=== PATIENT | female | born 1975 | race Caucasian/White ===

== ENCOUNTER 2018-01-25 03:42 | Emergency (ER) | payer MEDICARE ==
[~2018-01-25 03:42] MED LIST: ALBU90OI6 INH; AMOCLA875 PO; AMOX500 PO; Amox Tr-K Clv1 EAC2 PO; BENZ1 PO; BUSP10; BUSP5 PO; CEPH500 PO; CIPR100 PO; CIPR500 PO; CLON1; CLON2; Cleocin HCl300 MG PO; DOXY100 PO; DULOXETINE; FLUC150A PO; FLUO10 PO; FLUOXETINE; HYDACE10B PO; HYDACE5 PO; HYDPAM25; IBUP800 PO; LEVLIO2; LEVSOD100 PO; LEVSOD50 PO; LEXAPRO; LORA1 PO; LORA2 PO; MEDICAL MARIJUANA; METF500; NAPR500 PO; NITR100CA PO; OLAN10 PO; OLAN7.5 PO; ONDA4 PO; ONDA4ODT MM; OXYACE5T PO; PENVK500 PO; POTCHL20ER PO; QUET100; QUET100 PO; QUET200; QUET25; QUET25 PO; RXCEPH500 PO; RXHYDACE PO; RXNAPNA550 PO; SOME ANTIBIODIC; Synthroid100 MCG PO; THYROID; TOPI100; TRAM50 PO; TRAZ50
== END 2018-01-25 04:06 | disposition left against medical advice (07) ==
LOC: ER 03:42
DX: Z53.21 Procedure and treatment not carried out due to patient leaving prior to being seen by health care provider (principal)

== ENCOUNTER → 2019-05-08 | Outpatient (CLI) | payer MEDICARE, OTHER ==
[~2019-05-08] MED LIST changes: +AMOCLA500 PO; +BUPROPION XL150 MG PO; +Buspirone HCl15 MG PO; +Ciprodex Otic7.5 ML LEFTEAR; +DOXY100T53; +LEVSOD125 PO; +Vistaril25 MG PO
[2019-05-08 19:57] LABS: Alanine Aminotransfer (ALT/SGP 27 U/L (12-78); Albumin, Blood 3.7 g/dL (3.4-5.0); Albumin/Globulin Ratio 0.9 (0.8-1.8); Alk Phos 78 U/L (50-136); Anion Gap 4 mmol/L (6-16); Aspartate Aminotrans (AST/SGOT 16 U/L (12-37); Bilirubin, Total 0.5 mg/dL (0.1-1.0); Blood Urea Nitrogen 9 mg/dL (8-24); Bun/Creatinine Ratio 11.4 (12.0-20.0); CO2, Blood 24 mmol/L (21-32); Chloride, Blood 106 mmol/L (98-108); Cholesterol 176 mg/dL (50-200); Creatinine, Blood 0.79 mg/dL (0.40-1.00); Glomerular Filtration Rate >60 (60-); Glucose, Blood 93 mg/dL (70-99); HDL Cholesterol 35 mg/dL (>39); Potassium, Blood 3.8 mmol/L (3.5-5.5); Sodium, Blood 134 mmol/L (136-145); Total Protein, Blood 7.7 g/dL (6.4-8.2)
[2019-05-08 20:02] LABS: LDL/HDL RATIO 2.8; Low Density Lipoprotein Chol 98 mg/dL (0-110); Triglycerides 217 mg/dL (30-160); Very Low Density Lipoprot Chol 43 mg/dL (6-32)
[2019-05-09 23:06] LABS: HBSAG SCREEN Negative (Negative); HIV SCREEN 4TH GENERATION WRFX Non Reactive (Non Reactive)
== END | disposition home or self-care (01) ==
LOC: LAB 19:21 → LAB SHORT 19:21
PROVIDERS: Nurse Practitioner Family
DX: Z11.59 Encounter for screening for other viral diseases (principal); E03.9 Hypothyroidism, unspecified; E66.9 Obesity, unspecified; Z91.410 Personal history of adult physical and sexual abuse; Z79.899 Other long term (current) drug therapy
CPT/HCPCS: 80053; 80061; 84443; 86592; 87340; 87389

== ENCOUNTER 2019-06-17 18:57 | Emergency (ER) | payer MEDICARE, OTHER ==
[~2019-06-17] VITALS: Ht 165.1 cm; Wt 93.0 kg
[~2019-06-17 18:57] MED LIST changes: -AMOCLA500 PO; -BUPROPION XL150 MG PO; -Buspirone HCl15 MG PO; -Ciprodex Otic7.5 ML LEFTEAR; -DOXY100T53; -LEVSOD125 PO; -Vistaril25 MG PO
[2019-06-17 19:58] LABS: BASOPHILS ABSOLUTE AUTO 0.04 K/mm3 (0.00-0.23); BASOPHILS PERCENT AUTO 0 % (0-2); EOSINOPHILS ABSOLUTE AUTO 0.03 K/mm3 (0.00-0.68); EOSINOPHILS PERCENT AUTO 0 % (0-6); Hematocrit 46.5 % (33.0-51.0); Hemoglobin 15.9 g/dL (11.5-16.0); IMMATURE GRAN ABSOLUTE AUTO 0.03 K/mm3 (0.00-0.10); IMMATURE GRAN PERCENT AUTO 0 % (0-1); LYMPHOCYTES ABSOLUTE AUTO 1.26 K/mm3 (0.84-5.20); LYMPHOCYTES PERCENT AUTO 11 % (21-46); MONOCYTES ABSOLUTE AUTO 0.59 K/mm3 (0.16-1.47); MONOCYTES PERCENT AUTO 5 % (4-13); Mean Corpuscular HGB 32.1 pg (26.0-34.0); Mean Corpuscular HGB Conc 34.2 g/dL (31.5-36.5); Mean Corpuscular Volume 94 fL (80-100); Mean Platelet Volume 9.2 fL (9.1-12.4); NEUTROPHILS ABSOLUTE AUTO 9.43 K/mm3 (1.96-9.15); NEUTROPHILS PERCENT AUTO 83 % (41-73); Platelet Count 254 K/mm3 (150-400); RDW Coefficient Variation 12.6 % (11.7-14.2); RDW Standard Deviation 43.7 fL (35.1-46.3); Red Blood Cell Count 4.96 M/mm3 (3.80-5.20); White Blood Cell Count 11.38 K/mm3 (4.00-11.30)
[2019-06-17 20:17] LABS: Alanine Aminotransfer (ALT/SGP 30 U/L (12-78); Albumin, Blood 3.5 g/dL (3.4-5.0); Albumin/Globulin Ratio 0.8 (0.8-1.8); Alk Phos 103 U/L (50-136); Anion Gap 5 mmol/L (6-16); Aspartate Aminotrans (AST/SGOT 21 U/L (12-37); Bilirubin, Total 0.5 mg/dL (0.1-1.0); Blood Urea Nitrogen 16 mg/dL (8-24); Bun/Creatinine Ratio 19.5 (12.0-20.0); CO2, Blood 27 mmol/L (21-32); Calcium, Blood 9.5 mg/dL (8.5-10.1); Chloride, Blood 102 mmol/L (98-108); Creatinine, Blood 0.82 mg/dL (0.40-1.00); Globulin, Blood 4.2 g/dL (2.2-4.0); Glomerular Filtration Rate >60 (60-); Glucose, Blood 109 mg/dL (70-99); Sodium, Blood 134 mmol/L (136-145); Total Protein, Blood 7.7 g/dL (6.4-8.2)
[2019-06-17] MEDS ORDERED: DOXY100T53 (20:17)
[2019-06-17] MEDS ORDERED: BUPROPION XL150 MG PO (20:17)
[2019-06-17] MEDS ORDERED: Buspirone HCl15 MG PO (20:18)
[2019-06-17] MEDS ORDERED: Vistaril25 MG PO (20:18)
[2019-06-17] MEDS ORDERED: CEPH500 PO (22:06)
[2019-06-17] MEDS ORDERED: Ciprodex Otic7.5 ML LEFTEAR (22:06)
== END 2019-06-17 22:58 | disposition home or self-care (01) ==
LOC: ER 18:57
PROVIDERS: Physician Assistant
DX: L03.213 Periorbital cellulitis (principal); H60.92 Unspecified otitis externa, left ear; E11.9 Type 2 diabetes mellitus without complications; F31.9 Bipolar disorder, unspecified; F43.10 Post-traumatic stress disorder, unspecified; G43.909 Migraine, unspecified, not intractable, without status migrainosus; F17.200 Nicotine dependence, unspecified, uncomplicated; Z88.8 Allergy status to other drugs, medicaments and biological substances; Z88.2 Allergy status to sulfonamides; Z88.5 Allergy status to narcotic agent; Z79.899 Other long term (current) drug therapy; Z87.442 Personal history of urinary calculi
CPT/HCPCS: 70487; 80053; 85025; 96365-59; 99284-25; J0690; Q9967

== ENCOUNTER 2019-06-19 09:35 | Inpatient (IN) | payer MEDICARE, OTHER ==
[~2019-06-19] VITALS: Ht 165.1 cm; Wt 95.2 kg
[~2019-06-19 09:35] MED LIST changes: +BUPROPION XL150 MG PO; +Buspirone HCl15 MG PO; +Ciprodex Otic7.5 ML LEFTEAR; +DOXY100T53; +Vistaril25 MG PO
[2019-06-19 10:23] LABS: BASOPHILS ABSOLUTE AUTO 0.06 K/mm3 (0.00-0.23); BASOPHILS PERCENT AUTO 1 % (0-2); EOSINOPHILS ABSOLUTE AUTO 0.26 K/mm3 (0.00-0.68); EOSINOPHILS PERCENT AUTO 3 % (0-6); Hematocrit 47.3 % (33.0-51.0); Hemoglobin 15.5 g/dL (11.5-16.0); IMMATURE GRAN ABSOLUTE AUTO 0.03 K/mm3 (0.00-0.10); IMMATURE GRAN PERCENT AUTO 0 % (0-1); LYMPHOCYTES ABSOLUTE AUTO 1.28 K/mm3 (0.84-5.20); LYMPHOCYTES PERCENT AUTO 15 % (21-46); MONOCYTES PERCENT AUTO 5 % (4-13); Mean Corpuscular HGB Conc 32.8 g/dL (31.5-36.5); NEUTROPHILS ABSOLUTE AUTO 6.69 K/mm3 (1.96-9.15); NEUTROPHILS PERCENT AUTO 77 % (41-73); RDW Coefficient Variation 12.8 % (11.7-14.2); RDW Standard Deviation 45.7 fL (35.1-46.3); Red Blood Cell Count 4.85 M/mm3 (3.80-5.20); White Blood Cell Count 8.72 K/mm3 (4.00-11.30)
[2019-06-19 10:36] LABS: Mean Corpuscular Volume 98 fL (80-100); Mean Platelet Volume 9.4 fL (9.1-12.4); Platelet Count 236 K/mm3 (150-400)
[2019-06-19 10:42] LABS: Alanine Aminotransfer (ALT/SGP 32 U/L (12-78); Albumin/Globulin Ratio 0.7 (0.8-1.8); Alk Phos 110 U/L (50-136); Anion Gap 6 mmol/L (6-16); Aspartate Aminotrans (AST/SGOT 29 U/L (12-37); Bilirubin, Total 0.4 mg/dL (0.1-1.0); Blood Urea Nitrogen 13 mg/dL (8-24); Bun/Creatinine Ratio 17.9 (12.0-20.0); CO2, Blood 23 mmol/L (21-32); Calcium, Blood 8.8 mg/dL (8.5-10.1); Chloride, Blood 108 mmol/L (98-108); Creatinine, Blood 0.73 mg/dL (0.40-1.00); Globulin, Blood 4.4 g/dL (2.2-4.0); Glomerular Filtration Rate >60 (60-); Glucose, Blood 126 mg/dL (70-99); Potassium, Blood 3.8 mmol/L (3.5-5.5); Sodium, Blood 137 mmol/L (136-145); Total Protein, Blood 7.4 g/dL (6.4-8.2)
[2019-06-19] MEDS ORDERED: LEVSOD125 PO (11:59)
[2019-06-19] MEDS ORDERED: BUPROPION XL150 MG PO (11:59)
[2019-06-19 14:20] LABS: U Amphetamine Screen Not Detected; U Barbituate Screen Not Detected; U Benzodiazapine Screen Not Detected; U Buprenorphine Screen Not Detected; U Cannabinoids Screen Not Detected; U Cocaine Screen Not Detected; U Methadone Screen Not Detected; U Methamphetamine Screen Not Detected; U Opiates Screen Not Detected; U Oxycodone Screen Not Detected; U Phencyclidine Screen Not Detected; U Propoxyphene Screen Not Detected
[2019-06-19] MEDS ORDERED: DOXY100 PO (14:45)
[2019-06-19] MEDS ORDERED: CEPH500 PO (14:45)
--- NOTE | 2019-06-19 17:55 | NUR ---
ADMISSION PATIENT ARRIVED TO FLOOR AT 1405 FROM ED. PATIENT IS ALERT AND ORIENTED X4. HER L EYE AND FACE ARE SWOLLEN AND REDDENED. L EYE IS WEEPING A SMALL AMOUNT. PT STATES SHE IS GETTING OVER A COLD RIGHT NOW AND HAS AN OCCASIONAL COUGH. PT C/O MILD ACHE PAIN TO LEFT SIDE OF FACE, DENIES OTHER PAIN OR DISCOMFORT. TYLENOL GIVEN WITH SOME IMPROVEMENT. DENIES NAUSEA, SOB, WEAKNESS. LAST BM WAS TODAY. ADMISSION COMPLETE. PT STATES SHE IS CURRENTLY DEPRESSED AND HAS PANIC ATTACKS, MAINLY BROUGHT ON BY LARGE CROWDS OR SITUATIONS WITH A LOT OF PEOPLE. OVERALL NORMAL MOOD AND AFFECT NOTED.
--- NOTE | 2019-06-20 03:59 | NUR ---
SHIFT SUMMARY PATIENT WAS IN A CALM COOPERATIVE MOOD WHEN AWAKE THIS SHIFT. PATIENT REQUESTED A PRN DOSE OF VISTARIL AT 2244 TO HELP HER MIND CALM DOWN ENOUGH TO SLEEP. AFTER PATIENT SLEPT SOUNDLY ALL NIGHT. IV SITE FLUSHES AND IS PATENT. CALL LIGHT AND BELONGINGS WITHIN REACH. REPORT GIVEN TO ONCOMING RN.
[2019-06-20 04:37] LABS: Hematocrit 42.3 % (33.0-51.0); Hemoglobin 14.2 g/dL (11.5-16.0); Mean Corpuscular HGB 31.9 pg (26.0-34.0); Mean Corpuscular HGB Conc 33.6 g/dL (31.5-36.5); Mean Platelet Volume 9.2 fL (9.1-12.4); Platelet Count 258 K/mm3 (150-400); RDW Coefficient Variation 12.8 % (11.7-14.2); RDW Standard Deviation 45.3 fL (35.1-46.3); Red Blood Cell Count 4.45 M/mm3 (3.80-5.20); White Blood Cell Count 7.13 K/mm3 (4.00-11.30)
[2019-06-20 04:50] LABS: Mean Corpuscular Volume 95 fL (80-100)
--- NOTE | 2019-06-20 07:00 | NUR ---
ASSUMED CARE OF PT- BEDSIDE REPORT COMPLETED WITH NIGHT RN. PT ALERT, ORIENTED AND INDEPENDENT. PT IS A SMOKER AND PER REPORT GOES OUT TO SMOKE. PT HAS IV ACCESS WAITING FOR DOSE OF VANCO FROM PHARMACY. PT STATED PAIN IS MANAGED AT THIS TIME. LEFT SIDE OF FACE SWOLLEN. PT HERE FOR LEFT FACE CELLULITIS.
--- NOTE | 2019-06-20 19:27 | NUR ---
SHIFT SUMMARY- PT FACIAL EDEMA HAS REDUCED GREATLY SINCE THE START OF THE SHIFT. NO PAIN MANAGEMENT MEDICATION HAS BEEN REQUESTED T/O THE SHIFT. PT DID REQUEST HER PRN FOR ANXITEY WITH HER NIGHT TIME MEDICATIONS. PT ALERT, ORIENTED AND INDEPENDENT IN THE ROOM. IVF DC'D IV NOW SL. PASSED ALL ON IN BEDSIDE REPORT TO NIGHT FLAKO BLUE.
--- NOTE | 2019-06-21 03:23 | NUR ---
SHIFT SUMMARY PATIENT HAD NO ACUTE CHANGES OBSERVED. FACIAL CELLULITIS SWELLING DECREASING. DENIES PAIN, SOB, AND N/V. PIV REMAINS INTACT. IV ABX INFUSED. AXOX 3 AND INDEPENDENT IN THE ROOM. VSS/AFEBRILE. ANXIETY MEDICATION VISTARIL GIVEN X ONE PER EMAR BEFORE BED. PATIENT ABLE TO REST MOST OF THE SHIFT. COOPERATIVE WITH CARE. POSSIBLE DISCHARGE. CALL LIGHT IN REACH. BED IN LOWEST POSITION. WILL CONTINUE TO MONITOR UNTIL DAY SHIFT NURSE ASSUMES CARE.
--- NOTE | 2019-06-21 07:36 | NUR ---
ASSUMED CARE OF PT- REPORT COMPLETED WITH NIGHT RN SU. PT HAS HAD NO CHANGE T/O THE NIGHT. THIS MORNING SHE IS ASKING WHEN SHE WILL GET TO GO HOME. SWELLING IS GREATLY REDUCED TODAY IN THE FACE, STILL PRESENT IN THE NECK BUT LESS OBVIOUS AROUND THE LEFT EYE. PT STATED THE PAIN IS MINIMAL AT THIS TIME AND DOES NOT REQUIRE PAIN MEDICATION.
[2019-06-21] MEDS ORDERED: AMOCLA500 PO (11:05)
--- NOTE | 2019-06-21 11:58 | NUR ---
DISCHARGE NOTE- PT DISCHARGED HOME TODAY. VERBAL AND WRITTEN DISCHARGE INSTRUCTIONS WERE PROVIDED TO THE PT AND SHE HAD NO FURTHER QUESTIONS AT THE TIME OF DISCHARGE. PT HAD A HAND WRITTEN NOTE FROM THE DOCTOR FOR WORK RELEASE. IV DC'D PRIOR TO DISCHARGE.
== END 2019-06-21 11:35 | disposition home or self-care (01) | DRG 603 ==
LOC: ER 09:35 → MEDS 09:36
PROVIDERS: Emergency Medicine; Nurse Practitioner Acute Care; ADMIT Internal Medicine
DX: L03.213 Periorbital cellulitis (principal); F41.0 Panic disorder [episodic paroxysmal anxiety]; E03.9 Hypothyroidism, unspecified; F31.9 Bipolar disorder, unspecified; F17.210 Nicotine dependence, cigarettes, uncomplicated; Z88.5 Allergy status to narcotic agent; Z88.2 Allergy status to sulfonamides; Z88.8 Allergy status to other drugs, medicaments and biological substances; Z86.14 Personal history of Methicillin resistant Staphylococcus aureus infection
CPT/HCPCS: 36415; 80053; 85025; 85027; 87081; 90686; 96361; 96365; 99284-25; A9270; J1650; J2543; J3370; J7030; J7050; Q0177

== ENCOUNTER → 2020-01-22 | Outpatient (CLI) | payer MEDICARE, OTHER ==
[~2020-01-22] MED LIST changes: +AMOCLA500 PO; +LEVSOD125 PO
== END | disposition home or self-care (01) ==
LOC: LAB SHORT 09:32 → LAB 09:32
DX: L02.415 Cutaneous abscess of right lower limb (principal)
CPT/HCPCS: 87070; 87075; 87077; 87147; 87186; 87205

== ENCOUNTER 2024-02-26 22:58 | Observation (INO) | payer MEDICARE, OTHER ==
[~2024-02-26] VITALS: Ht 165.1 cm; Wt 95.2 kg
[2024-02-27 00:31] LABS: BASOPHILS ABSOLUTE AUTO 0.06 K/mm3 (0.00-0.23); BASOPHILS PERCENT AUTO 1 % (0-2); EOSINOPHILS ABSOLUTE AUTO 0.54 K/mm3 (0.00-0.68); EOSINOPHILS PERCENT AUTO 7 % (0-6); Hematocrit 42.4 % (33.0-51.0); IMMATURE GRAN ABSOLUTE AUTO 0.02 K/mm3 (0.00-0.10); IMMATURE GRAN PERCENT AUTO 0 % (0-1); LYMPHOCYTES PERCENT AUTO 21 % (21-46); MONOCYTES ABSOLUTE AUTO 0.26 K/mm3 (0.16-1.47); MONOCYTES PERCENT AUTO 3 % (4-13); Mean Corpuscular HGB 32.1 pg (26.0-34.0); Mean Corpuscular HGB Conc 35.4 g/dL (31.5-36.5); Mean Corpuscular Volume 91 fL (80-100); Mean Platelet Volume 8.7 fL (9.1-12.4); NEUTROPHILS ABSOLUTE AUTO 5.55 K/mm3 (1.96-9.15); NEUTROPHILS PERCENT AUTO 68 % (41-73); Platelet Count 290 K/mm3 (150-400); RDW Coefficient Variation 14.4 % (11.7-14.2); RDW Standard Deviation 47.9 fL (35.1-46.3); Red Blood Cell Count 4.68 M/mm3 (3.80-5.20); White Blood Cell Count 8.13 K/mm3 (4.00-11.30)
[2024-02-27 00:33] LABS: U Amphetamine Screen Not Detected; U Barbituate Screen Not Detected; U Benzodiazapine Screen Not Detected; U Buprenorphine Screen Not Detected; U Cannabinoids Screen Not Detected; U Cocaine Screen Not Detected; U Methadone Screen Not Detected; U Methamphetamine Screen Not Detected; U Opiates Screen Not Detected; U Oxycodone Screen Not Detected; U Phencyclidine Screen Not Detected
[2024-02-27 01:23] LABS: Alanine Aminotransfer (ALT/SGP 46 U/L (12-78); Albumin, Blood 3.4 g/dL (3.4-5.0); Albumin/Globulin Ratio 0.7 (0.8-1.8); Alk Phos 142 U/L (50-136); Anion Gap 8 mmol/L (3-11); Aspartate Aminotrans (AST/SGOT 32 U/L (12-37); Bilirubin, Total 0.7 mg/dL (0.1-1.0); Blood Urea Nitrogen 16 mg/dL (8-24); Bun/Creatinine Ratio 22.5 (12.0-20.0); CO2, Blood 24 mmol/L (21-32); Calcium, Blood 8.5 mg/dL (8.5-10.1); Chloride, Blood 109 mmol/L (98-108); Creatinine, Blood 0.71 mg/dL (0.40-1.00); Ethanol (Alcohol), Blood, Med <3 mg/dL; Globulin, Blood 4.6 g/dL (2.2-4.0); Glomerular Filtration Rate 104 (60-); Glucose, Blood 107 mg/dL (70-99); Potassium, Blood 3.4 mmol/L (3.5-5.5); Sodium, Blood 138 mmol/L (136-145)
[2024-02-27 02:11] LABS: Source, Urine Clean Catch
[2024-02-27 02:20] LABS: Bilirubin, Urine Neg (Neg); Blood, Urine Neg (Neg); Glucose Qualitative, Urine Neg (Neg); Ketones, Urine Neg (Neg); Leukocyte Esterase, Urine 1+ (Neg); Nitrite, Urine Neg (Neg); Protein, Urine 1+ (Neg); Urobilinogen, Urine NORM (Normal)
[2024-02-27 02:42] LABS: Appearance, Urine Cloudy (Clear); Color, Urine Yellow (P-Yellow)
[2024-02-27 02:44] LABS: Amorphous Heavy (0-Heavy); Bacteria Mod /hpf; Red Blood Cells, Urine Not Seen /hpf (0-2); Squamous Epithelial Cells Rare /hpf (Few); Triple Phosphate Crystals Mod /hpf
[2024-02-27] MEDS ORDERED: LORazepam 2 MG Tab PO PRN (14:35)
[2024-02-27 15:59] VITALS: BP 123/88
[2024-02-27] MEDS ORDERED: Potassium Chloride 10 Meq Tablet SA PO ONE (16:05)
[2024-02-27] MEDS ORDERED: Nitrofurantoin/Nitrofuran Mac 100 MG Cap PO SCH (21:00)
== END 2024-02-27 17:19 | disposition other institution (70) ==
LOC: ER 22:58 → EOR 22:59 → BHU 02-27 15:03 → EOR 02-27 17:19
PROVIDERS: ADMIT Emergency Medicine
DX: F43.10 Post-traumatic stress disorder, unspecified (principal); F31.9 Bipolar disorder, unspecified; F60.3 Borderline personality disorder; E11.9 Type 2 diabetes mellitus without complications; F17.210 Nicotine dependence, cigarettes, uncomplicated; Z88.2 Allergy status to sulfonamides; Z88.5 Allergy status to narcotic agent; Z88.8 Allergy status to other drugs, medicaments and biological substances; Z79.890 Hormone replacement therapy; Z79.899 Other long term (current) drug therapy
CPT/HCPCS: 80053; 81001; 84703; 85025; 87077; 87086; 87186; 93005; 93010; 99285-25; A9270; G0378

== ENCOUNTER 2024-02-27 14:24 | Inpatient (IN) | payer MEDICARE, OTHER ==
[2024-02-27] MEDS ORDERED: LORazepam 2 MG Tab PO PRN (16:25)
[2024-02-27 18:51] VITALS: BP 127/103
--- NOTE | 2024-02-27 19:03 | NUR ---
Full PT Belonging list in hardchart.
[2024-02-27 19:45] VITALS: BP 130/97
[2024-02-27] MEDS ORDERED: Potassium Chloride 10 Meq Tablet SA PO ONE (20:00)
[2024-02-27] MEDS ORDERED: Ondansetron 4 MG SoluTab MM PRN (20:45)
[2024-02-27] MEDS ORDERED: Ketorolac Tromethamine 10 MG Tab PO ONE (20:45)
[2024-02-27] MEDS ORDERED: Acetaminophen/Aspirin/Caffeine 250/250/65 MG PO ONE (21:00)
[2024-02-27] MEDS ORDERED: Cefdinir 300 MG Cap PO SCH (21:00)
[2024-02-27] MEDS ORDERED: Acetaminophen/Aspirin/Caffeine 250/250/65 MG PO PRN (21:00)
[2024-02-28] MEDS ORDERED: Levothyroxine Sodium 0.125 MG Tab PO SCH (06:00)
[2024-02-28 08:10] VITALS: BP 116/80
[2024-02-28] MEDS ORDERED: BuPROPion HCl SR 100 MG TabCR PO SCH (09:50)
[2024-02-28] MEDS ORDERED: BusPIRone HCl 5 MG Tab PO SCH (09:51)
[2024-02-28 10:54] LABS: Bun/Creatinine Ratio 21.2 (12.0-20.0); Calcium, Blood 8.6 mg/dL (8.5-10.1); Creatinine, Blood 0.85 mg/dL (0.40-1.00); Potassium, Blood 4.1 mmol/L (3.5-5.5)
--- NOTE | 2024-02-28 13:58 | NUR ---
PT SLEEPING MOST OF THE DAY. JUST MET WITH SW. ASKED HOW IT WENT FOR HER, AND SHE JUST SHRUGGED HER SHOULDERS UP AND DOWN. SHE DID STATE THAT STARTING HER WELLBUTRIN AND BUSPAR HAVE MADE HER SLEEPY TODAY. EXPLAINED AFTER HER BEING OFF OF IT FOR A WHILE IT WILL MAKE HER SLEEPY UNTIL SHE GETS A THERAPUTIC LEVEL IN HER SYSTEM. SHE VERBALIZED UNDERSTANDING OF THE MEDICATION. WLL CONTINUE TO MONITOR.
--- NOTE | 2024-02-28 16:03 | NUR ---
APS CALL ATTEMPT:::::::::::::::::::::::::::::::: Juan attempted to contact Adult Protective Services via phone [phone] (located in [place]), however, call did not go through. Juan contacted [facility] at [phone] twice and each time the call dropped after accepting option to speak with a provider. Juan will attempt to contact [facility] on 03/01/2024.
--- NOTE | 2024-02-28 17:46 | NUR ---
SHIFT SUMMARY PT STATES IS SI POSITIVE. NO DIRECT PLAN BUT DID STATE SHE" COULD DRINK CHEMICALS". HAS SLEPT MOST OF THE DAY. DID WATCH MOVIE THIS AFTERNOON. DR. SOLORZANO INTO SEE PT TODAY POSITVE UTI AND STARTED PYRIDIUM. PT STARTED ON WELLBUTRIN AND BUSPAR TODAY. HAS SLEPT MOST OF THE DAY. HAS EXPRESSED THAT" I FEEL DOOMED" IN RELATION TO HER HOME STATUS RESPONSIBLITIE HAS INCREASED FOR HER. SHE STATED SHE WANTS TO HAVE A SAFE PLACE TO LIVE. SHE STATES THAT SHE "FEELS SAFE AT THIS TIME BEING HERE." SW MET WITH PT TODAY AND EXPRESSED THAT SHE IS "DEPRESSED". WILL CONTINUE TO MONITOR.
[2024-02-28 21:20] VITALS: BP 100/78
[2024-02-29 06:57] LABS: Bun/Creatinine Ratio 24.6 (12.0-20.0); Calcium, Blood 8.3 mg/dL (8.5-10.1); Creatinine, Blood 0.9 mg/dL (0.40-1.00); Potassium, Blood 4.2 mmol/L (3.5-5.5)
[2024-02-29 08:04] VITALS: BP 100/77
--- NOTE | 2024-02-29 08:19 | NUR ---
PT UP FOR BREAKFAST AND BACK TO BED. AM MEDS GIVEN. PT REPORTS FEELING OK JUST VERY TIRED, REPORTS NO CURRENT SI WHILE SLEEPING. WILL CONTINUE TO ASSESS.
--- NOTE | 2024-02-29 09:18 | NUR ---
PT UP IN ACTIVITY/ DINING ROOM PARTICIPATING W/ OT. PROVIDER IN TO SEE PT. THEN RETURNED TO [facility]ITY.
--- NOTE | 2024-02-29 11:53 | NUR ---
CALL TO DR SKELTON TO REQUEST BOWEL CARE V/O FOR MIRLAX 17G 1 CAP PO DAILY PT DECLINES TO TAKE AT THIS TIME, REPORTS HAD SMALL BM. WILL REASSESS AT A.M. DOSE TO CONTINUE SCHEDULED DOSING OR REQUEST CHANGE TO PRN PER PATIENT REQUEST
--- NOTE | 2024-02-29 14:30 | NUR ---
PT IN ACTIVITY/ DINING ROOM PARTICIPATING IN GROUP W/ SW. PT CONTINUES TO PARTICIPATE IN PUZZLE FOLLOWING COMPLETION OF GROUP.
--- NOTE | 2024-02-29 15:45 | NUR ---
PT LEFT ACTIVITY ROOM TO LAY DOWN TO REST BEFORE DINNER.
--- NOTE | 2024-02-29 18:11 | NUR ---
OSHIFT SUMMARY PT CONTINUES TO SLEEP MOST OF THE SHIFT. PT PARTICIPATING IN GROUPS/ ACTIVITIES/ MEALS. PT DENIES CURRENT SI AT THIS TIME BUT REPORTS FEELINGS OF SADNESS. PT DOES INFORM THAT SHE RECENTLY STARTED TAKING ANTIDEPRESSANT. PT CONTINUES TO BE SOFT SPOKEN AND QUIET. WILL CONTINUE TO MONITOR Q 15MINUTE.
[2024-02-29 22:30] VITALS: BP 107/78
[2024-03-01 08:30] VITALS: BP 111/87
[2024-03-01] MEDS ORDERED: Polyethylene Glycol 3350 17 gm PO SCH (09:00)
[2024-03-01] MEDS ORDERED: Melatonin 3 MG Tab PO PRN (09:55)
--- NOTE | 2024-03-01 11:27 | NUR ---
Juan contacted Adult Protective Services (i.e. [facility] [phone]) by phone at ext [phone] and spoke with Jimmy Lewis, due to pt advising of unsafe living conditions (i.e. Rat infestion and multiple broken utilities). Pt advised that she has difficulty walking due to severe foot pain and her sister is diabetic. Jimmy advised she will contact [facility] regarding pt housing issues. Juan requested for Jimmy to also review with [facility] regarding assistance for a transplant case manager for outpatient care.
[2024-03-01] MEDS ORDERED: BusPIRone HCl 5 MG Tab PO SCH (14:00)
--- NOTE | 2024-03-01 14:20 | NUR ---
Juan contacted [facility] by [phone] and spoke with Kerry Chavez (i.e. [facility] worker) from 1409pm-1419pm. 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
--- NOTE | 2024-03-01 15:38 | NUR ---
Juan received a callback from [facility] and spoke with Cindy from 1450pm-1502pm. Cindy advsied that [facility] does not provide assistance with housing, however, that [facility] might be able. Juan attempted to contact [facility] at [phone] Opt [phone] at 1539pm and left a vm. Juan will attempt to contact [facility] at another time. Juan will attempt to meet with pt regarding filling out a Health Risk Assessment Screening and Assistance Request Form in order to support pt in utilizing [facility] for any arising future services after discharge as encouraged by Cindy.
--- NOTE | 2024-03-01 18:53 | NUR ---
SHIFT SUMMARY PT CALM, COOPERATIVE, UP FOR MEALS, SLEPT ABOUT 4-5 HOURS, SEEN ON UNIT SOCIAL WITH OTHER PEERS ACTIVITIES, AND MEALS WITH MILIEU. PT WATCHING TV WITH PEERS. PT READY TO LEARN, RN EDUCATED ACTION AND INDICATIONS FOR MEDICATIONS, NEEDS FURTHER TEACHING. CONTINUING TO MONITOR THROUGHOUT SHIFT. PT DENIES SI, HI AND A/V/T HALLUCINATIONS PT STATES. "I FEEL THAT I WOULD TRY TO HURT MYSELF IF I WERE NOT HERE. I FEEL SAFE HERE. IT FEELS LIKE EVERYONE IS TALKING ABOUT ME."
[2024-03-01 19:53] VITALS: BP 123/88
[2024-03-02 08:36] VITALS: BP 109/81
[2024-03-02] MEDS ORDERED: Melatonin 5 MG Tablet PO PRN (09:15)
--- NOTE | 2024-03-02 18:52 | NUR ---
PT AA&OX4. CALM AND COOPERATIVE WITH CARE. PT WITHDRAWN AND QUIET. EYE CONTACT LIMITED. SHE REPORTS THAT SHE IS FEELING "SAD AND DEPRESSED" SHE REPORTS SI WITH PLAN. SHE REPORTS SHE DOES NOT WANT TO DO IT ON THE UNIT BUT IS THINKING ABOUT "RUNNING IN FRONT OF A CAR" SHE DID TALK TO HER SISTER TODAY AND WAS UP WITH MILIUE TO WATCH TV. SHE WAS UP TO MEALS. SHE RESTED IN BED THROUGHOUT THE DAY. SHE DECLINES ANY NEEDS AT THIS TIME.
[2024-03-02 19:54] VITALS: BP 103/74
[2024-03-03 12:18] VITALS: BP 121/98
--- NOTE | 2024-03-03 19:13 | NUR ---
SHIFT SUMMARY NO SIGNIFICANT CHANGE IN PT STATUS TODAY. SHE IS AA&OX4. SHE IS CALM AND COOPERATIVE WITH CARE. SHE IS WITHDRAWN. PT ENCOURAGED TO PARTICIPATE BUT USUALLY REPLIES "MAYBE LATER" SHE WAS UP FOR MEALS AND REQUEST A SHOWER TONIGHT. SHE DENIES ANY NEEDS AT THIS TIME.
[2024-03-04 08:27] VITALS: BP 122/81
[2024-03-04] MEDS ORDERED: Mirtazapine 15 MG Tab PO SCH (21:00)
[2024-03-04] MEDS ORDERED: BusPIRone HCl 5 MG Tab PO SCH (21:00)
[2024-03-04 23:09] VITALS: BP 103/80
--- NOTE | 2024-03-05 02:48 | NUR ---
PT CAME INTO DINING ROOM AT TO HAVE A SNACK TO TAKE HER MEDICATION WITH. QUIET VOICE WHEN CONVERSING. PT IS IN BED RESTING QUIETLY AT THIS TIME. WILL CONT WITH 15 MIN CHECKS PER PROTOCOL AND MONITOR FOR CHANGES T/O SHIFT.
--- NOTE | 2024-03-05 04:42 | NUR ---
SHIFT SUMMARY PT A&OX4. QUIET AND SOMEWHAT WITHDRAWN. COOPERATIVE WITH CARE. ANSWERS "NOT RIGHT NOW" WHEN ASKED IF SHE IS HAVING SI/HI OR AVT HALLUCINATIONS. PT TALKS WITH QUIET VOICE. PT IS IN BED WITH EYES CLOSED RESTING QUIETLY. EVERY 15 MINUTE CHECKS PERFORMED PER UNIT PROTOCOL. RESP EVEN AND UNLABORED. CHEST RISE AND FALL X 4 NOTED. WILL CONTINUE TO MONITOR AND PROVIDE CARE T/O SHIFT.
[2024-03-05 08:54] VITALS: BP 120/87
--- NOTE | 2024-03-05 10:33 | NUR ---
MORNING ASSESSMENT: PT ENDORSED SOME FEELINGS OF SI AND THEN REPORTED "IF I WAS OUTSIDE THIS PLACE I THINK I WOULD BE RUNNING INTO TRAFFIC AND HURTING MYSELF." SHE DENIED ANY THOUGHTS OF HURTING OTHERS. PHYSICAL ASSESSMENT WAS WNL. SHE ATTENDED A GROUP THIS MORNING.
--- NOTE | 2024-03-05 18:22 | NUR ---
PT SPENT A LOT OF THE DAY RESTING IN BED, SHE CURRENTLY IS WATCHING TV WITH STAFF AND PEERS. SHE IS ALERT AND ORIENTED X4. APPEARS TO BE WITHDRAWN.
[2024-03-05 19:21] VITALS: BP 107/83
--- NOTE | 2024-03-06 00:24 | NUR ---
PT IS A&OX4. GUARDED AND QUIET. PLEASANT AND COOPERATIVE WITH CARE. DENIES ANY SI/HI, A/V/T HALLUCINATIONS. PT IS IN BED RESTING QUIETLY WITH EYES CLOSED AND RESP EVEN AND UNLABORED. CHEST RISE AND FALL X 4 NOTED.
--- NOTE | 2024-03-06 04:37 | NUR ---
SHIFT SUMMARY PT IN TV ROOM WITH PEERS AT BEGINNING OF SHIFT. SHE WENT TO BED BEFORE I BROUGHT HER MEDS, BUT WAS CALM, PLEASANT AND COOPERATIVE WITH ME. DENIES ANY AH, VH, TH, OR HI. CONTINUES TO REPORT THAT IF SHE HAS TO LEAVE HERE SHE WOULD NOT BE SAFE, BUT FEELS SAFE HERE. SHE LOOKS DOWN MOSTLY EVEN WHEN TALKING TO THIS RN. WHEN ASKED HOW SHE WAS FEELING SHE SAID, "I DON'T KNOW, DOWN AND DEPRESSED". SHE HAS BEEN SLEEPING SINCE HAVING HS MEDS. WILL CONTINUE TO MONITOR AND PROVIDE CARE T/O SHIFT.
[2024-03-06 08:26] VITALS: BP 113/85
--- NOTE | 2024-03-06 12:27 | NUR ---
Elvis attempted to contact resources that would provide pt with a manager marketing sales in order to receive housing assistance support. Of these resources, elvis contacted [facility] by number [phone] from 1055am and spoke with a A&D contact representative who forwarded sw to a department where sw left a vm to be called back, [facility] by [phone] at 1100am and left a vm, [facility]OH[facility] at 1108am and spoke with adelina Chavez who advised that [facility] does not provide support for obtaining a manager marketing sales or receiving financial assistance for an centrifugal supervisor, however,they do for renting, but currently rental waitlists are 2 years and elvis attempted to contact Kenisha Gutierrez of [facility] at 1147am and left a vm.
--- NOTE | 2024-03-06 17:47 | NUR ---
SHIFT ASSESSMENT PT AA&OX4. PT PLEASANT AND COOPERATIVE WITH CARE. PT WITH LIMITED EYE CONTACT AND SOFT SPOKEN. RESPONSES ARE LIMITED WHEN ASKING ASSESSMENT QUESTIONS. WHEN ASKED MOOD SHE STATES "I STILL DON'T FEEL SAFE TO GO HOME" SHE DOES NOT ELABORATE WHY. SHE ENDORSES SI WITH THOUGHT OF JUMPING IN FRONT OF CARS. SHE CAN NOT IDENTIFY ANY GOALS WITH ME. SHE HAS BEEN UP TO SHOWER, GROUP, AND MEALS. SHE DENIES ANY CONCERNS OR CURRENT NEEDS AT THIS TIME. WILL CONTINUE POC UNTIL HANDOFF
[2024-03-06 20:07] VITALS: BP 110/82
[2024-03-07 08:21] VITALS: BP 118/90
--- NOTE | 2024-03-07 17:04 | NUR ---
SHIFT SUMMARY HAS BEEN UP AND PARTICIPATING IN GROUPS TODAY. COMPLIANT ON MEDS. STILL HAS FLAT AFFECT. DENIES SI, VH, AND AH. SHE "FEELS SAFE" IN THE [place].
[2024-03-07 19:51] VITALS: BP 108/79
[2024-03-08 08:43] VITALS: BP 113/86
[2024-03-09 09:23] VITALS: BP 108/94
--- NOTE | 2024-03-09 17:29 | NUR ---
SHIFT SUMMARY PT UP AND INTERACTED ALL DAY WITH GROUPS, MOVIE AND OTHERS. SHOWED A MORE RELAXED MANOR AND SHARED SOME OF HER INNER-SELF WITH OTHERS IN GROUP TODAY. ONCE AGAIN THIS AM REINFORCED THAT SHE IS IN A SAFE ENVIROMENT. DENIED SI. WILL CONTINUE TO MONITOR
[2024-03-10 09:26] VITALS: BP 116/78
[2024-03-11 08:15] VITALS: BP 110/79
--- NOTE | 2024-03-11 11:27 | NUR ---
Due to pt discharging on 03/13/2024, will provide pt with resources to reach [facility] for walk-in MH resources, as pt could benefit from receving individual therapy to relieve depressive like symptoms and continue medication.
--- NOTE | 2024-03-11 17:53 | NUR ---
SHIFT SUMMARY PT AxOx4. PLEASANT AND COOPERATIVE WITH CARE. PT REPORTS FEELING SUICIDAL TODAY WITH PLANS BUT NO INTENT. PT REPORTS MOOD "SAME, DEPRESSED, HOPELESS" TODAY. SHE ELABORATES THAT THIS IS HEAVILY WEIGHTED FROM HER POOR LIVING CONDITIONS. BIOLOGICAL PHOTOGRAPHER WORKING ON GETTING LTC ELIGIBILITY PROCESSED TODAY, DC PLANS PENDING THIS STEP. PT DENIES AVH. PT HAS BEEN PARTICIPATING IN GROUPS THIS SHIFT. PT IS CURRENTLY SITTING IN GROUP ROOM WATCHING A MOVIE WITH PEERS/STAFF. PT DENIES ANY NEEDS AT THIS TIME.
--- NOTE | 2024-03-11 19:54 | NUR ---
TEARFUL W/ PHONE CALL PT HEARD CRYING DURING PHONE CALL. PRASANNA ANGUIANO F/U W/ PT IN ROOM. THIS NURSE THEN F/U AND SAT TO TALK WITH PT REGARDING CURRENT LIVING SITUATIONS, FINANCIAL CONCERNS, SISTERS HEALTH CONCERNS, AND FEELINGS OF HOPELESSNESS. PT REPORTS SI WITH CURRENT STRESSORS BUT INFORMS NO PLANS AND AGREES TO NO SELF HARM. I HAVE DISCUSSED W/ PT POSSIBLE PROGRAMS FOR HOUSING ASSISTANCE AND REPLACEMENT OF THE CURRENT HOME. PT CONTINUES TO HAVE TEARFUL MOMENTS IN THOUGHT AND APOLOGIZES FOR TEARFUL EPISODE. AFTER SITTING W/ PT FOR ABOUT 15 MINUTES, I OFFERED HER SOMETHING TO HELP W/ ANXIETY AND RELAX. PT ACCEPTED AND MEDICATED W/ 2MG ATIVAN. WILL CONTINUE MONITORING AND REASSESS.
[2024-03-11 21:37] VITALS: BP 104/69
[2024-03-12 09:02] VITALS: BP 102/76
--- NOTE | 2024-03-12 11:04 | NUR ---
[facility] Contact::::::::::::::::::::::::::: Elvis supported pt with care coordination as pt contacted [facility] by phone [phone] on 03/11/2024 in order to begin the process for reviewing if the pt could be approved for Computer Forensic Specialist Services (LTS). Upon call pt and elvis spoke with Jessica Chavez (i.e. [facility] personal service representative) from 1519pm to 1644pm approximately. Jessica advised that the eligibility department will begin the process to review if she will be approved for LTS and that she should expect a callback from Eligibility no later than 04/25/2024. Pt [facility] eligibility case number is [id number]. In the event S approves pt for services, this will support pt in attempting to live in a [facility] in the future if needed.
--- NOTE | 2024-03-12 13:03 | NUR ---
Juan contacted [facility] by phone at [phone] and spoke with Lyndsay from [phone]. Lyndsay advised that the [facility] currently has spots available for people and a person may come with 2 medium sized suitcases and one backpack. Juan reported this information to pt.
--- NOTE | 2024-03-12 13:06 | NUR ---
Juan contacted sister (i.e. Faiza Muhammad) of pt at and spoke on the phone from 0950am to 1003am. Juan educated Faiza of contacting [facility] in regard to Pickling Operator Services (LTS) as Faiza and pt have expressed wanting to live with one another. Faiza expressed she is not interesting in receiving LTS for assistance in living in a [facility] because she'd rather live in her own home. Faiza expressed that currently the home where her and pt live have running water and eletricity, however, she and pt are not sure when utilities will be turned off. Juan advised Faiza of resources that assist with utility support. Faiza advised that once pt is ready for discharge, her boyfriend may be able to assist in picking up pt from [facility].
--- NOTE | 2024-03-12 18:21 | NUR ---
SHIFT SUMMARY PT AxOx4. PLEASANT AND COOPERATIVE WITH WITH CARE. PT REPORTS SI THIS SHIFT WITHOUT PLAN OR INTENT. HER BEHAVIOR ON THE UNIT HAS BEEN CALM, AND QUIET. PT TENDS TO KEEP TO HERSELF MOST OF THE DAY, BUT DID PARTICIPATE IN GROUPS AND WATCH TV IN GROUP ROOM. CURRENT PLAN IS FOR POSS TX HOME OR WOMEN'S INTERMEDIATE. PT DENIES ANY NEEDS AT THIS TIME.
[2024-03-12] MEDS ORDERED: buPROPion HCL 150 MG TAB.SR.12H PO SCH (21:00)
[2024-03-12 22:30] VITALS: BP 91/60
--- NOTE | 2024-03-13 16:29 | NUR ---
SHIFT SUMMARY: PT REPORTED THAT SHE DIDN'T FEEL GOOD TODAY...SHE ENDORSED SI AND SAID, "I FEEL HOPELESS. SHE REMAINED IN BED MOST OF THE MORNING AND THEN AFTER LUNCH SHE HAS ATTENDED GROUPS. SHE IS COOPERATIVE WITH CARE. PT IS NOW WATCHING A MOVIE WITH PEERS.
[2024-03-13 20:57] VITALS: BP 95/63
[2024-03-14 08:00] VITALS: BP 119/88
--- NOTE | 2024-03-14 08:19 | NUR ---
PT REPORTS SI "IS ALWAYS THERE," WHEN ASKING ABOUT THOUGHTS OR PLANS SHE TALKS ABOUT SI IF SHE WAS HOME STATES SHE THOUGHT ABOUT CUTTING, JUMPING IN FRONT OF A VEHICLE OR DRINKING ANTIFREEZE, THOUGH DOESN'T SHARE ANY RECENT THOUGHTS. PT STATES SHE IS OVERWHELMED BY THE POSSIBILITY OF DISCHARGE TODAY, STATES SHE WOULD LIKE DC TOMORROW OVER TODAY, SHE CANNOT VERBALIZE WHAT IS OVERWHELMING HER JUST STATES "EVERYTHING." SHE ISN'T SURE WHO HER PCP IS BUT STATES SHE IS WILLING TO GO TO [facility] FOR OUTPATIENT THERAPY/RX SERVICES.
--- NOTE | 2024-03-14 09:12 | NUR ---
Juan attempted to return a callback to Pily Barnett at 10:22am on 03/13/2024 (i.e. [facility] worker), as juan was advised Ms. Lopez needed to discuss CAPS ASSESSMENT.
--- NOTE | 2024-03-14 16:24 | NUR ---
At 0827-3200 Juan spoke with [facility] via phone in order to assist pt in receiveing a PCP. Juan was advised by [facility] indirect sales representative that pt has a pcp with [facility] and the pcp is Charlotte Bedoya. Juan and FLAKO Blanco contacted [facility] at [phone]. Per [facility] indirect sales representative, pt is inactive and in order to become active again, [facility] will require for [facility] to fax discharge to [phone]. Pt completed ARACELI to fax [facility] discharge information.
[2024-03-14 19:51] VITALS: BP 108/85
--- NOTE | 2024-03-15 08:19 | NUR ---
Juan contacted Pily Barnett by phone and spoke from 0811am to 0816am. Pily of [facility] advised that she will contact pt on 03/19/2024 to schedule CAPS ASSESSMENT. Juan attempted to schedule CAPS assessment before discharge, however, Pily advised it would have to be once pt has discharged. Juan will relay information to pt and team. Juan confirmed pt cellphone with Pily that is in file in order to reach pt after discharge.
[2024-03-15] MEDS ORDERED: BUSP10 PO (14:24)
[2024-03-15] MEDS ORDERED: MIRT15 PO (14:24)
[2024-03-15] MEDS ORDERED: EUTHYROX125 MCG PO (14:24)
[2024-03-15] MEDS ORDERED: MIRALAX17 GM PO (14:24)
[2024-03-15] MEDS ORDERED: BUPR150ER PO (14:25)
[2024-03-15] MEDS ORDERED: MELATONIN5 M1 PO (14:25)
--- NOTE | 2024-03-15 15:29 | NUR ---
DOWNTIME UTILIZED FOR 03/15/24 CHARTING, PT ENGAGED AND COOPERATIVE, AFTER MANY CONVERSATIONS WITH HER SISTER SHE HAS DECIDED TO GO HOME WITH HER, SHE DOES NOT WANT TO GO TO A RETIREMENT ANYMORE. SHE STILL HAS AN APPT SCHEDULED FOR LTC ELIGIBILITY.
--- NOTE | 2024-03-15 16:54 | NUR ---
[facility] GOT DELAYED, PT WAS NOT GOING TO MAKE IT TO THE PHARMACY IN TIME TO GET MEDICATIONS, SWITCHED MEDS TO [facility], THEY STATE THEY WILL TAKE ABOUT ONE HOUR, CALLED [facility] AND THEY WILL COME IN ONE HOUR. PT IS WAITING IN CONSULT ROOM, AWARE AND IN AGREEMENT OF NEW DC TIME AND PLAN.
== END 2024-03-15 17:40 | disposition home or self-care (01) | DRG 885 ==
LOC: BHU 14:24
PROVIDERS: Family Medicine; Internal Medicine; ADMIT Psychiatry & Neurology Psychiatry
DX: F31.9 Bipolar disorder, unspecified (principal); N39.0 Urinary tract infection, site not specified; F60.3 Borderline personality disorder; Z87.442 Personal history of urinary calculi; Z87.891 Personal history of nicotine dependence; F43.21 Adjustment disorder with depressed mood; E03.9 Hypothyroidism, unspecified; E87.6 Hypokalemia; E11.9 Type 2 diabetes mellitus without complications; G43.909 Migraine, unspecified, not intractable, without status migrainosus; K42.9 Umbilical hernia without obstruction or gangrene; F43.10 Post-traumatic stress disorder, unspecified; Z90.49 Acquired absence of other specified parts of digestive tract; Z90.89 Acquired absence of other organs; Z98.51 Tubal ligation status; Z88.5 Allergy status to narcotic agent; Z88.2 Allergy status to sulfonamides; Z88.8 Allergy status to other drugs, medicaments and biological substances; Z79.890 Hormone replacement therapy; Z79.899 Other long term (current) drug therapy
CPT/HCPCS: 36415; 80048; 84443; A9270